=== PATIENT | male | born 1945 | race Caucasian/White ===

== ENCOUNTER 2023-06-25 11:33 | Emergency (ER) | payer MEDICARE, BC ==
[~2023-06-25] VITALS: Ht 175.3 cm; Wt 109.1 kg
[2023-06-25 11:48] VITALS: BP 150/85; PULSE 89; RESP 18; TEMP 97; O2SAT 98
[2023-06-25] MEDS ORDERED: HYDR-3965 PO (12:45)
[2023-06-25] MEDS ORDERED: MELO-100 PO (12:45)
== END 2023-06-25 12:58 | disposition home or self-care (01) ==
LOC: ER 11:33
DX: S93.401A Sprain of unspecified ligament of right ankle, initial encounter (principal); Z88.8 Allergy status to other drugs, medicaments and biological substances; X58.XXXA Exposure to other specified factors, initial encounter; Y93.89 Activity, other specified; Y92.89 Other specified places as the place of occurrence of the external cause; Y99.8 Other external cause status
CPT/HCPCS: 73590; 73610; 73630; 99284; L4360